=== PATIENT | male | born 1940 | race Caucasian/White ===

== ENCOUNTER → 2019-01-16 | Outpatient (REF) | payer MEDICARE, MEDICAID ==
[~2019-01-16] MED LIST: AMLO25TA PO; ARTIDRO2 OD; CARV6.25 PO; FERR325T3 PO; FINA5TAB2 PO; GLIM2TAB29 PO; LASI20TA3 PO; LEVO88TA3 PO; LIPI10TA PO; LISI-538 PO; LORA-674 PO; MAALSUS19 PO; METF10004 PO; MUCI1LIQ3 PO; PEPC1TAB5 PO; TRAD5TAB PO
[2019-01-16 18:12] LABS: FERRITIN 54 NG/ML (26-388); IRON (FE) 42 UG/DL (65-175); PERCENT SATURATION 15.6 % (19.7-50.0); TOTAL IRON BINDING CAPACITY 269 UG/DL (250-450)
[2019-01-16 18:17] LABS: FOLATE > 24.0 NG/ML; VITAMIN B12 LEVEL 258 PG/ML
[2019-01-16 18:35] LABS: URINE TOTAL PROTEIN 27.3 MG/DL (0-12)
[2019-01-22 14:15] LABS: ANCA-ATYPICAL 1:40 titer (Neg:<1:20); ANTI DS-DNA AB <1:10 titer (.); ANTINUCLEAR ANTIBODIES DIRECT Negative (Negative); CYTOPLASMIC NEUTROP AB ANCA-C <1:20 titer (Neg:<1:20); PERINUCLEAR AB ANCA-P <1:20 titer (Neg:<1:20)
[2019-01-23 09:43] LABS: ALBUMIN 3.91 GM/DL (3.29-5.55); ALBUMIN % 55.9 % (55.8-66.1); ALPHA-1-GLOBULIN % 4.2 % (2.9-4.9); ALPHA-1-GLOBULINS 0.29 GM/DL (0.17-0.41); ALPHA-2-GLOBULINS 0.89 GM/DL (0.42-0.99); ALPHA-2-GLOBULINS % 12.7 % (7.1-11.8); BETA-1-GLOBULINS 0.45 GM/DL (0.28-0.60); BETA-1-GLOBULINS % 6.4 % (4.7-7.2); BETA-2-GLOBULINS 0.46 GM/DL (0.19-0.55); BETA-2-GLOBULINS % 6.5 % (3.2-6.5); GAMMA GLOBULIN % 14.3 % (11.1-18.8)
[2019-01-23 13:51] LABS: UPEP INTERPRETATION NO M-SPIKE NOTED; URINE VOLUME RANDOM ML
== END ==
LOC: M LAB REF 16:57
PROVIDERS: ATTEND Internal Medicine Nephrology
DX: E79.0 Hyperuricemia without signs of inflammatory arthritis and tophaceous disease (principal); D64.9 Anemia, unspecified

== ENCOUNTER 2019-02-04 07:35 | Outpatient (CLI) | payer MEDICARE, MEDICAID ==
[~2019-02-04] VITALS: Ht 160 cm; Wt 102.7 kg
[2019-02-04] VITALS (7 sets, daily range): BP systolic 138–160; BP diastolic 64–77
[2019-02-04] MEDS ORDERED: IRON SUCROSE 25 MG in NS 50 ML IV ONE (08:15)
[2019-02-04] MEDS ORDERED: IRON SUCROSE 175 MG in NS 100 ML IV ONE (09:00)
[2019-02-04] MEDS ORDERED: ARTIDRO2 OD (09:16)
[2019-02-04] MEDS ORDERED: FERR325T3 PO (09:16)
[2019-02-04] MEDS ORDERED: METF10004 PO (09:16)
[2019-02-04] MEDS ORDERED: LORA-674 PO (09:16)
[2019-02-04] MEDS ORDERED: PEPC1TAB5 PO (09:16)
[2019-02-04] MEDS ORDERED: AMLO25TA PO (09:16)
[2019-02-04] MEDS ORDERED: LISI-538 PO (09:16)
[2019-02-04] MEDS ORDERED: LEVO88TA3 PO (09:16)
[2019-02-04] MEDS ORDERED: LASI20TA3 PO (09:16)
[2019-02-04] MEDS ORDERED: LIPI10TA PO (09:16)
[2019-02-04] MEDS ORDERED: MUCI1LIQ3 PO (09:22)
[2019-02-04] MEDS ORDERED: MAALSUS19 PO (09:22)
[2019-02-04] MEDS ORDERED: FINA5TAB2 PO (09:22)
[2019-02-04] MEDS ORDERED: GLIM2TAB29 PO (09:22)
[2019-02-04] MEDS ORDERED: CARV6.25 PO (09:22)
[2019-02-04] MEDS ORDERED: TRAD5TAB PO (09:22)
== END 2019-02-04 13:00 | disposition home or self-care (01) ==
LOC: M INFU 07:35
PROVIDERS: ATTEND Internal Medicine Nephrology
DX: D50.9 Iron deficiency anemia, unspecified (principal); Z79.899 Other long term (current) drug therapy
CPT/HCPCS: 96365; 96366; 96367; J1756

== ENCOUNTER 2019-02-11 12:53 | Outpatient (CLI) | payer MEDICARE, MEDICAID ==
[~2019-02-11] VITALS: Ht 160 cm; Wt 102.7 kg
[2019-02-11 12:57] VITALS: BP 131/62
[2019-02-11] MEDS ORDERED: IRON SUCROSE 200 MG in NS 100 ML OVER 1 HR IV ONE (13:15)
[2019-02-11 13:50] VITALS: BP 115/60
[2019-02-11 14:50] VITALS: BP 102/68
[2019-02-11 15:50] VITALS: BP 119/68
[2019-02-11 16:35] VITALS: BP 146/80
== END 2019-02-11 16:50 | disposition home or self-care (01) ==
LOC: M INFU 12:53
PROVIDERS: ATTEND Internal Medicine Nephrology
DX: D50.9 Iron deficiency anemia, unspecified (principal); Z88.8 Allergy status to other drugs, medicaments and biological substances
CPT/HCPCS: 96365; 96366; J1756

== ENCOUNTER → 2019-05-21 | Outpatient (REF) | payer MEDICARE, MEDICAID ==
[2019-05-21 14:01] LABS: ALBUMIN 3.3 GM/DL (3.2-5.2); CALCIUM LEVEL 9.3 MG/DL (8.8-10.2); CREATININE FOR GFR 1.42 MG/DL (0.70-1.30); GLOMERULAR FILTRATION RATE 51.3 (>42); MAGNESIUM LEVEL 2.1 MG/DL (1.8-2.4); PHOSPHORUS LEVEL 2.6 MG/DL (2.5-4.9); POTASSIUM SERUM 5.1 MEQ/L (3.5-5.1)
== END ==
LOC: M LAB REF 13:07
PROVIDERS: ATTEND Nurse Practitioner Family
DX: N18.2 Chronic kidney disease, stage 2 (mild) (principal); E83.42 Hypomagnesemia